=== PATIENT | female | born 1940 | race Caucasian/White ===

== ENCOUNTER → 2017-02-21 | Day surgery (SDC) | payer MEDICARE, OTHER ==
[~2017-02-21] MED LIST: IOHEXOL 180 MG/ML 20 ML VIAL (for RAD DIAG) ONE; LACTATED RINGER'S 1000 ML INJ 1,000 ML ONE; PROPOFOL 200 MG/20 ML AMP IV ONE
--- NOTE | 2017-02-21 16:58 | TN ---
cc: LIZ GUEVARA DATE OF SURGERY: 02/21/2017 PREOPERATIVE DIAGNOSES 1. Effusion of the left knee. 2. History of left total knee replacement arthroplasty. 3. Possible infection of left total knee replacement arthroplasty. POSTOPERATIVE DIAGNOSES 1. Effusion of the left knee. 2. History of left total knee replacement arthroplasty. 3. Possible infection of left total knee replacement arthroplasty. 4. Hemorrhagic effusion, left knee. SURGEON Liz Guevara MD ANESTHESIA TIVA. BLOOD LOSS None. INDICATION This is a 76-year-old female approximately 18 or 19 months status post total knee replacement arthroplasty [place] separate [place]. She has had swelling, redness, pain and serologic markers that are abnormal for infection. She presents for aspiration of the knee for concerns of infection. PROCEDURE The patient brought to the operating and given limited sedation. The left leg was evaluated under anesthesia. Range of motion was extension 0, flexion 105 degrees, no instability. A significant effusion was noted. The left leg was scrubbed with alcohol followed by Hibiclens followed by Chloraprep and draped sterilely. An 18-gauge spinal needle was advanced down anterior and laterally and placed into an intraarticular position. Approximately 40 cc of a bloody effusion was drained. This was sent for culture and for cell count. An arthrogram was performed. This showed no clear evidence of loosening of the femoral or tibial components. Alignment appeared to be satisfactory, no instability was noted, no failure of the components were noted. The patient was awakened and taken to the recovery room in satisfactory condition. MD TELMA Tapia/MARYLOU /3:57 PM /4:45 PM
[2017-02-21 19:27] LABS: WBC, SYNOVIAL FLUID 6000 /MM3 (0-200)
== END | disposition home or self-care (01) ==
LOC: ESDC 13:08
PROVIDERS: ATTEND Orthopaedic Surgery Orthopaedic Surgery of the Spine
DX: M25.462 Effusion, left knee (principal); Z96.652 Presence of left artificial knee joint
CPT/HCPCS: 01380; 20610; 73560; 87015; 87070; 87102; 87116; 87205; 87206; 89051; J7120; Q9965